=== PATIENT | male | born 1955 | race Two or more races ===

== ENCOUNTER → 2024-10-29 | Outpatient (CLI) | payer BC, SELFPAY ==
[2024-10-29 09:24] LABS: Basophils # (Auto) 0.1 Thou/mm3 (0.0-0.2); Basophils % (Auto) 1 % (0-2.5); Eosinophils # (Auto) 0.1 Thou/mm3 (0.0-0.5); Eosinophils % (Auto) 2 % (0-10); Hematocrit 46.7 % (41.0-53.0); Hemoglobin 15.6 g/dL (13.5-16.0); Immature Granulocytes % (Auto) 0 % (0-0); Immature Granulocytes Auto 0.01 Thou/mm3 (0.00-0.00); Lymphocytes # (Auto) 1.3 Thou/mm3 (1.0-4.8); Lymphocytes % (Auto) 32 % (10-50); Mean Corpuscular HGB Conc 33.4 g/dl (31.0-37.0); Mean Corpuscular Hemoglobin 32.6 pg (25.0-35.0); Mean Corpuscular Volume 98 fL (80-100); Monocytes # (Auto) 0.4 Thou/mm3 (0.0-0.8); Monocytes % (Auto) 11 % (0-12); Neutrophils # (Auto) 2.1 Thou/mm3 (1.8-7.7); Neutrophils % (Auto) 54 % (37-80); Nucleated Red Blood Cell % 0 /100 WBC (0); Platelet Count 163 Thou/mm3 (140-440); RDW Standard Deviation 47.2 fL (35.1-43.9); Red Blood Count 4.78 Miln/mm3 (4.50-5.90)
[2024-10-29 09:40] LABS: Alanine Aminotransferase 17 U/L (10-49); Albumin, Serum 4.3 gm/dL (3.4-4.8); Alkaline Phosphatase 84 U/L (46-116); Anion Gap 3 (7-16); Aspartate Amino Transferase 21 U/L (0-34); BUN/Creatinine Ratio 18 Ratio (12-20); Bilirubin,Direct 0.4 mg/dL (0.0-0.3); Bilirubin,Total 1.2 mg/dL (0.3-1.2); Blood Urea Nitrogen 22 mg/dL (9-23); Calcium 9.7 mg/dL (8.3-10.6); Cardiac Risk Estimate 2.3 RATIO (4.0-6.7); Chloride 105 mMol/L (98-107); Cholesterol 146 mg/dL (132-200); Creatinine (Component) 1.2 mg/dL (0.6-1.3); Free T4 (Free Thyroxine) 1.34 ng/dL (0.89-1.76); Glucose 118 mg/dL (74-106); HDL Cholesterol 63 mg/dL (40-60); LDL Cholesterol,Calculated 68 mg/dL (0-130); Osmolality,Calculated 281 (275-295); Potassium 5.6 mMol/L (3.4-5.1); Sodium 139 mMol/L (136-145); Thyroid Stimulating Hormone 1.13 uIU/mL (0.55-4.78); Total Protein 6.8 gm/dL (5.7-8.2); Triglycerides 75 mg/dL (30-150); eGFR > 60 See Note
== END | disposition home or self-care (01) ==
LOC: COPL 08:27
PROVIDERS: PCP Family Medicine; Referring Provider Family Medicine; Visit Provider Family Medicine
DX: E03.9 Hypothyroidism, unspecified (principal); E78.5 Hyperlipidemia, unspecified; I10 Essential (primary) hypertension
CPT/HCPCS: 36415; 80048; 80061; 80076; 84439; 84443; 85025

== ENCOUNTER → 2024-11-16 | Outpatient (CLI) | payer BC, SELFPAY ==
[2024-11-22 06:54] LABS: Fecal Globin Result NOT DETECTED (NOT DETECTED)
== END | disposition home or self-care (01) ==
LOC: SLDO 09:57
PROVIDERS: PCP Family Medicine; Referring Provider Family Medicine; Visit Provider Family Medicine
DX: Z12.11 Encounter for screening for malignant neoplasm of colon (principal); Z12.12 Encounter for screening for malignant neoplasm of rectum
CPT/HCPCS: 82274; G0328

== ENCOUNTER → 2025-01-31 | Outpatient (CLI) | payer BC, SELFPAY ==
[2025-01-31 09:07] LABS: Anion Gap 8 (7-16); BUN/Creatinine Ratio 25 Ratio (12-20); Blood Urea Nitrogen 25 mg/dL (9-23); Calcium 9.6 mg/dL (8.3-10.6); Carbon Dioxide 26.1 mMol/L (20.0-31.0); Chloride 108 mMol/L (98-107); Glucose 97 mg/dL (74-106); Osmolality,Calculated 287 (275-295); Potassium 4.5 mMol/L (3.4-5.1); Sodium 142 mMol/L (136-145); eGFR > 60 See Note
== END | disposition home or self-care (01) ==
LOC: COPL 07:52
PROVIDERS: PCP Family Medicine; Referring Provider Family Medicine; Visit Provider Family Medicine
DX: I10 Essential (primary) hypertension (principal)
CPT/HCPCS: 36415; 80048

== ENCOUNTER 2025-10-06 21:41 | Emergency (ER) | payer BC, SELFPAY ==
--- NOTE | 2025-10-06 21:53 | XR_ITS ---
Examination: CT chest, without intravenous contrast. CT abdomen, without intravenous contrast. CT pelvis, without intravenous contrast. 2-D sagittal and coronal reconstructions. 3-D reconstructions. Date and time of exam: October 06, 2025, 1132 hours INDICATIONS: Onset chest abdominal pain beginning 2 hours ago CTDI vol (mgy) 11.4 DLP (MGycm) 907 Technique: Multiple CT images, 3.0 mm slice thickness, obtained chest, abdomen, pelvis, with the high-resolution 64 slice scanner.. Sagittal and coronal 2-D reconstructions are obtained. 3-D reconstructions Low dose protocols were performed. One or more of the following dose reduction techniques were used; automated exposure control, adjustment of the mA and/or KV according to patient size, use of iterative reconstruction technique. Findings: Thoracic aortic calcification no aneurysmal dilatation Pulmonary artery segments are not enlarged No pneumonia or pulmonary edema or pleural disease No liver or splenic lesion Contracted gallbladder No pancreatic or adrenal mass Bilateral renal calculi, 4 mm on the left 4 mm on the right Benign right renal cysts No hydronephrosis or ureteral calculi Normal appendix Colonic diverticulosis, no diverticulitis No bladder mass or bladder calculi Moderate prostatomegaly Small fat-containing right inguinal hernia IMPRESSION: No mediastinal lymphadenopathy No pneumonia or pulmonary edema Bilateral nonobstructing renal calculi, no hydronephrosis or ureteral calculi Normal appendix No bladder mass or bladder calculi Moderate prostatomegaly
--- NOTE | 2025-10-06 21:53 | XR_ITS ---
Examination: CT brain head without contrast. 2-D sagittal coronal reconstructions Date and time of exam: October 06, 2025, 11:30 p.m., comparison October 01, 2023 INDICATIONS: Syncopal episode with loss of consciousness 2 hours ago with nausea vomiting CTDI: vol (mGy): 52.1 DLP: (mGycm): 982 Technique: Multiple CT axial sections of the brain have been obtained, 5 mm slice thickness. Contrast has not been administered. 2-D sagittal, coronal reconstructions have been obtained Low dose protocols were performed. One or more of the following dose reduction techniques were used; automated exposure control, adjustment of the mA and/or KV according to patient size, use of iterative reconstruction technique. Findings: No significant ventricular enlargement. 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 No mass effect or midline shift Basal cisterns are not remarkable. Fourth ventricle is midline. Cranial vault intact. Impression: Negative for acute hemorrhage, mass effect or midline shift Advise clinical correlation and follow-up accordingly
--- NOTE | 2025-10-06 21:53 | XR_ITS ---
EXAMINATION: AP chest single view TECHNIQUE: AP portable upright chest single view Date and time: October 06, 2025, 10:29 p.m. INDICATIONS: Shortness of breath today. FINDINGS: Moderate elevation left hemidiaphragm Mild vascular congestion. Normal heart size. No pneumonia or pulmonary edema IMPRESSION: Mild vascular congestion No pneumonia or pulmonary edema
--- NOTE | 2025-10-06 21:53 | EKG_ITS ---
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
[2025-10-06 22:14] VITALS: PULSE 63; RESP 18; O2SAT 98; BMI 28.3
[2025-10-06] MEDS: SODIUM CHLORIDE 0.9% 1000 ML 1,000 ML 999 ML IV (22:14)
[2025-10-06] MEDS: ONDANSETRON INJ 2 MG/ML INJ 2 ML 4 MG IVP (22:15)
[2025-10-06 22:16] VITALS: BP 123/66; PULSE 65; RESP 14; O2SAT 99
--- NOTE | 2025-10-06 22:22 | PD.EDSYNC ---
ED Syncope RME/HPI General Chief Complaint: Nausea/Vomiting/Diarrhea Stated Complaint: NAUSEA, VOMITTING Time Seen by Provider: 10/06/25 22:19 Arrival date/time: 10/06/25 21:41 RME / HPI RME / HPI narrative: See [facility] for Dr. Thrasher's HPI Documentation. Related Data Home Medications ?Medication ?Instructions ?Recorded ?Confirmed clopidogrel 75 mg tablet 75 mg PO QDAY 10/03/23 10/03/23 gabapentin 300 mg capsule 300 mg PO TID 10/03/23 10/03/23 levothyroxine 100 mcg tablet 100 mcg PO QDAY 10/03/23 10/03/23 tamsulosin 0.4 mg capsule 0.4 mg PO QDAY 10/03/23 10/03/23 Previous Rx's ?Medication ?Instructions ?Recorded atorvastatin 80 mg tablet 80 mg PO QPM #30 tabs 10/03/23 Allergies Allergy/AdvReac Type Severity Reaction Status Date / Time No Known Allergies Allergy Verified 10/01/23 09:29 Review of Systems Review of Systems Systems Reviewed: All systems reviewed, normal except as documented Past Medical History Past Medical History CARDIAC: Positive Hypercholesterolemia and Hypertension GENITOURINARY: Positive Benign Prostatic Hyperplasia MUSCULOSKELETAL: Positive Arthritis ENDOCRINE: Positive Hypothyroidism Family History FAMILY HISTORY: Positive Family Cardiac Disorders ED Exam Narrative Physical exam: See [facility] for Dr. Thrasher's Physical Exam Documentation. Course Quality Measures none Orders Category Date Time Status EKG (ED ONLY) *Do not use* NOW Care 10/06/25 21:53 Completed Saline [Insert IV] NOW Care 10/06/25 21:52 Completed Straight [In and Out Catheter] X1 Care 10/06/25 21:[address] chest abdomen pelvis wo Stat Exams 10/06/25 21:[address] head/brain wo con Stat Exams 10/06/25 21:53 Completed EKG (ED Only) Stat Exams 10/06/25 21:53 Draft XR chest 1V portable Stat Exams 10/06/25 21:53 Completed Alcohol, Blood Medical Stat Lab 10/06/25 22:18 Completed Amylase Stat Lab 10/06/25 22:18 Completed BNP [B-Type Natriuretic Peptide] Stat Lab 10/06/25 22:18 Completed Bilirubin,Direct Stat Lab 10/06/25 22:18 Completed Blood Culture (Lab) Stat Lab 10/06/25 22:20 Received CBC Stat Lab 10/06/25 22:18 Completed CMP [Comprehensive Metabolic Panel] Stat Lab 10/06/25 22:18 Completed COVID-19 Antigen (In-House) Stat Lab 10/07/25 01:20 Completed CRP [C-Reactive Protein] Stat Lab 10/06/25 22:18 Completed ESR [Sed Rate (ESR)] Stat Lab 10/06/25 22:18 Completed Hemoglobin A1C [Glycohemoglobin w (eAG)] Stat Lab 10/06/25 22:18 Completed Influenza A & B Rapid Panel Stat Lab 10/07/25 01:20 Completed Lactate (Lactic Acid) Stat Lab 10/06/25 22:18 Completed Lipase Stat Lab 10/06/25 22:18 Completed Magnesium Stat Lab 10/06/25 22:18 Completed Procalcitonin Stat Lab 10/06/25 22:18 Completed TSH [Thyroid Stimulating Hormone] Stat Lab 10/06/25 22:18 Completed Troponin I Stat Lab 10/06/25 22:18 Completed Troponin I Stat Lab 10/07/25 01:31 Completed UA, C/S IF [Urinalysis, C/S if Indicated] Stat Lab 10/06/25 22:26 Completed VBG [Venous Blood Gas] Stat Lab 10/06/25 22:18 Completed Ondansetron Inj [Zofran Inj] Med 10/06/25 21:52 Discontinued 4 mg IVP X1 ONE Sodium Chloride 0.9% 1000 ml [Ns] 1,000 ml Med 10/06/25 21:52 Discontinued IV 999 mls/hr Vital Signs Vital signs: Vital Signs Pulse Rate 65 10/06/25 22:16 Respiratory Rate 14 10/06/25 22:16 Blood Pressure 123/66 10/06/25 22:16 Pulse Oximetry (%) 99 10/06/25 22:16 Oxygen Delivery Method Room Air 10/06/25 22:16 Syncope MDM Narrative MDM Narrative:: This section includes all my notes and documentations, including HPI, PE, and ED course. 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 Lasted for several seconds. Patient doesn't remember. Currently, he feels completely normal. No headache or dizziness. No speech or vision impairment. No loss of power in the arms or legs. No chest pain or shortness of breath. No other complaints. ROS: All negative except as documented in HPI. Physical Exam: General: Alert and oriented. No acute distress. Eyes: Conjunctivae and lids clear. EOMI. PERRL. ENT: No nasal congestion. Neck: Supple. No carotid bruit. No JVD. Heart: RRR. Lungs: No respiratory distress. Good air movement. No rhonchi, wheezing, rales. Abdomen: Soft and nontender. Normal bowel sounds. No distension. No rebound or guarding. Legs: No clubbing, cyanosis, edema. Skin: Warm and dry. Neuro: Alert and oriented X 3. Cranial Nerves II-XII grossly intact. No peripheral motor deficits. Musculoskeletal: All major joints and bones are not tender with no limited ROM. I reviewed EMS notes. I reviewed all diagnostic test results: My interpretation of the EKG is: Sinus rhythm (57 bpm) with nonspecific ST-T changes. My interpretation of the chest x-ray is: No acute findings. My review of the Head/Brain CT report is: No acute findings. My review of the Abdomen/Pelvis CT report is: No acute findings. Blood tests and urine tests unremarkable, except serum alcohol 41.2. Covid/Influenza are negative. At this point, diagnoses include: Syncope for few seconds with no obvious etiology Treatment here included: IVF 1 L Zofran 4 mg IV Patient remained stable. Recommended more outpatient workup. Based on my best medical judgment, made decision no further evaluation or treatment indicated at this time. Patient and understands and agrees to the discharge instructions customized and printed, see below. Discharge instructions from Dr. Thrasher: 1. After extensive evaluation, exact cause of why you passed out for few seconds was not determined. But there is no immediately life-threatening condition. Such as stroke or brain tumor or heart attack. 2. Eat regular nutritious meals. For good hydration, increase oral fluid and maintain clear urine. If dark or yellow, increase oral fluid. 3. See a private doctor on 10/10/25 for more investigation. Ask to review all test results and official radiology reports, to make sure you receive all necessary follow-ups and monitoring. To make sure there is no serious underlying heart condition, ask to help you get more tests for your heart that cannot be done here in the ER. Such as Holter Monitor (cardiac monitoring at home from a day to even a month), heart stress test (on treadmill or with medication), echocardiogram (imaging of your heart structures), heart catherization (checking for blockages in your heart arteries), and a referral to see a Archaeology Professor. And ask for help with MRI imaging of the brain and referral to see neurologist. 4. Seek immediate medical care with another episode or with any concerns. Jeff Thrasher MD Patient data External records reviewed:: [facility] previous records (Reviewed prior ED records from 10/01/23. Patient was seen for Elevated blood pressure reading without diagnosis of hypertension.) and EMS form Clinical information provided by:: patient and EMS Social determinants that could affect healthcare access:: none Patient has the following chronic illnesses:: Hypercholesterolemia, Hypertension, Benign Prostatic Hyperplasia, Arthritis, Hypothyroidism How is presenting disease/condition affected by chronic disease/condition?: exacerbated by Evaluation data The following diagnostics were reviewed and interpreted by me:: lab results, radiology exam(s) and EKG tracing(s) (My interpretation of the EKG is: Sinus rhythm (57 bpm) with nonspecific ST-T changes. Jeff Thrasher MD) Lab and/or radiology exams considered but not ordered:: None Interpretation Summary: I reviewed all diagnostic test results: My interpretation of the EKG is: Sinus rhythm (57 bpm) with nonspecific ST-T changes. My interpretation of the chest x-ray is: No acute findings. My review of the Head/Brain CT report is: No acute findings. My review of the Abdomen/Pelvis CT report is: No acute findings. Blood tests and urine tests unremarkable, except serum alcohol 41.2. Covid/Influenza are negative. Medications / Prescriptions Medications or Prescriptions considered but not ordered:: None Medication administrations:: Medication Administration History Discontinued Medications Sodium Chloride (Ns) 1,000 mls @ 999 mls/hr IV .Q1H1M ONE Stop: 10/06/25 22:52 Last Infusion: 10/06/25 23:15 Dose: Infused Documented By: Admin: 11/27/25 22:14 Dose: 999 mls/hr Documented By: MCKENZIE Ondansetron HCl (Ondansetron Inj 2 Mg/Ml Inj 2 Ml) 4 mg IVP X1 ONE; Protocol Stop: 10/06/25 21:53 Last Admin: 10/06/25 22:15 Dose: 4 mg Documented By: MCKENZIE Treatment here included: IVF 1 L Zofran 4 mg IV Consultations Consultation(s) initiated? (list below): No Diagnosis Syncope Differential Diagnosis: syncope due to orthostatic hypotension, vasovagal syncope, complete atrioventricular block, subarachnoid hemorrhage, dehydration and other (CVA, brain tumor, psychogenic) Most likely diagnosis given after review of the tests above:: Syncope for few seconds with no obvious etiology Admission Indicated Admission indicated?: not indicated Explain why admission is indicated or not indicated:: With significant improvement and no condition needing emergent intervention, there was no indication for admission. Admission Request Was there a request for admission?: No Disposition Plan Disposition Plan: Discharge Discharge Attestation Discharge Attestation: The patient and all family members were given an opportunity to ask questions and understood the discharge instructions. Discharge instructions specifically effects, indications for sooner follow up or return to the emergency department, and the expected course of current diagnosis. Patient condition: Stable Discharge Plan Plan Patient Disposition: HOME (Self Care) Prescriptions/Referrals Prescriptions/Med Rec: No Action clopidogrel 75 mg tablet 75 mg PO QDAY Patient Comments: TAKE 1 TABLET BY MOUTH DAILY levothyroxine 100 mcg tablet 100 mcg PO QDAY Patient Comments: TAKE 1 TABLET BY MOUTH EVERY DAY tamsulosin 0.4 mg capsule 0.4 mg PO QDAY Patient Comments: TAKE 2 CAPSULES BY MOUTH DAILY gabapentin 300 mg capsule 300 mg PO TID Patient Comments: TAKE 1 CAPSULE BY MOUTH THREE TIMES DAILY atorvastatin 80 mg tablet 80 mg PO QPM Qty: 30 0RF Referrals: No Primary/Family,Physician [Primary Care Provider] - In 1 week Problem List Clinical Impression: Syncope Patient/Caregiver Discharge Instructions Discharge Activity: activity as tolerated Education Materials: ED Fainting, Uncertain Cause Additional Instructions: Discharge instructions from Dr. Thrasher: 1. After extensive evaluation, exact cause of why you passed out for few seconds was not determined. But there is no immediately life-threatening condition. Such as stroke or brain tumor or heart attack. 2. Eat regular nutritious meals. For good hydration, increase oral fluid and maintain clear urine. If dark or yellow, increase oral fluid. 3. See a private doctor on 10/10/25 for more investigation. Ask to review all test results and official radiology reports, to make sure you receive all necessary follow-ups and monitoring. To make sure there is no serious underlying heart condition, ask to help you get more tests for your heart that cannot be done here in the ER. Such as Holter Monitor (cardiac monitoring at home from a day to even a month), heart stress test (on treadmill or with medication), echocardiogram (imaging of your heart structures), heart catherization (checking for blockages in your heart arteries), and a referral to see a Archaeology Professor. And ask for help with MRI imaging of the brain and referral to see neurologist. 4. Seek immediate medical care with another episode or with any concerns. Instrucciones de moe del Dr. Thrasher: 1. Tras jamal evaluaci?n exhaustiva, no se determin? la causa exacta del desmayo de unos segundos. Sin embargo, no presenta ninguna afecci?n que ponga en peligro blackwell jaqueline de forma inmediata. Krupa un derrame cerebral, un tumor cerebral o un ataque card?aco. 2. Consuma comidas nutritivas regularmente. Para jamal buena hidrataci?n, aumente la ingesta de l?quidos y mantenga la orina vel. Si la orina es oscura o amarilla, aumente la ingesta de l?quidos. 3. Consulte con un m?dico particular el 10/10/25 para jamal mayor investigaci?n. Solicite revisar todos los resultados de las pruebas y los informes radiol?gicos oficiales para asegurarse de recibir todo el seguimiento y la monitorizaci?n necesarios. Para descartar cualquier afecci?n card?marisol subyacente grave, solicite que le realicen m?s pruebas card?acas que no se pueden realizar aqu? en la sarthak de emergencias. Krupa un monitor Holter (monitorizaci?n card?marisol en casa prem un d?a o incluso un mes), jamal prueba de esfuerzo card?aco (en cinta de correr o con medicaci?n), un ecocardiograma (imagen de las estructuras del coraz?n), un cateterismo card?aco (para detectar obstrucciones en las arterias coronarias) y jamal derivaci?n a un cardi?logo. Adem?s, solicite jamal resonancia magn?yamini cerebral y jamal derivaci?n a un neur?logo. 4. Busque atenci?n m?dica inmediata si presenta otro episodio o si tiene alguna inquietud. Print Language: Tamazight Stand Alone Forms: Diana Award Info., Patient Portal Info Letter
[2025-10-06 22:26] LABS: Lactate (Lactic Acid) 1.6 mMol/L (0.4-2.0)
[2025-10-06 22:27] LABS: Base Excess, Venous 0 (-3-3); O2 Saturation, Venous 54 % (96-97); PCO2, Venous 39 mmHg (36-56); PO2, Venous 37 mmHg (15-58); pH, Venous 7.41 (7.33-7.66)
--- NOTE | 2025-10-06 22:32 | PC.NURSE ---
Did not perform in and out order. Pt was able to provide a urine sample using a urinal to collect a UA sample.
[2025-10-06 22:38] LABS: Sed Rate (ESR) 9 mm/hr (0-20)
[2025-10-06 22:40] LABS: Basophils # (Auto) 0.1 Thou/mm3 (0.0-0.2); Basophils % (Auto) 1 % (0-2.5); Eosinophils # (Auto) 0.1 Thou/mm3 (0.0-0.5); Eosinophils % (Auto) 2 % (0-10); Hematocrit 46.0 % (41.0-53.0); Hemoglobin 15.4 g/dL (13.5-16.0); Immature Granulocytes Auto 0.01 Thou/mm3 (0.00-0.00); Lymphocytes # (Auto) 1.7 Thou/mm3 (1.0-4.8); Lymphocytes % (Auto) 28 % (10-50); Mean Corpuscular HGB Conc 33.5 g/dl (31.0-37.0); Mean Corpuscular Hemoglobin 32.6 pg (25.0-35.0); Mean Corpuscular Volume 98 fL (80-100); Monocytes # (Auto) 0.6 Thou/mm3 (0.0-0.8); Monocytes % (Auto) 10 % (0-12); Neutrophils # (Auto) 3.5 Thou/mm3 (1.8-7.7); Neutrophils % (Auto) 58 % (37-80); Nucleated Red Blood Cell # 0.00 Thou/mm3 (0.00-0.00); Nucleated Red Blood Cell % 0 /100 WBC (0); Platelet Count 159 Thou/mm3 (140-440); RDW Standard Deviation 45.3 fL (35.1-43.9); Red Blood Count 4.72 Miln/mm3 (4.50-5.90); White Blood Count 6.0 Thou/mm3 (3.8-10.6)
[2025-10-06 22:49] LABS: B-Type Natriuretic Peptide 51 pg/mL (0-100)
[2025-10-06 22:52] LABS: Collection Type, Urine Clean Catch; Squamous Epithelial Cell,Urine 0 /hpf (0-5)
[2025-10-06 23:09] LABS: Bacteria,Urine Rare; Bilirubin,Urine Negative (Negative); Blood,Urine Trace (Negative); Clarity,Urine Clear (Clear/Hazy); Color,Urine Lt-Yellow (Lt Yel-Yel); Culture Indicated,Urine Not Indicated; Glucose, Urine Negative (Negative); Hyaline Casts,Urine < 1 /hpf (0-1); Ketones,Urine Negative (Negative); Leukocyte Esterase,Urine Negative (Negative); Nitrite,Urine Negative (Negative); PH,Urine 6.0 (5.0-7.0); Protein,Urine 1+ (Neg - Trace); RBC,Urine 10 /hpf (0-3); Specific Gravity,Urine 1.020 (1.001-1.035); Urobilinogen,Urine Negative mg/dL (0.0-1.0); WBC,Urine 2 /hpf (0-5)
[2025-10-06 23:19] LABS: Alanine Aminotransferase 15 U/L (10-49); Albumin, Serum 4.2 gm/dL (3.4-4.8); Albumin/Globulin Ratio 1.9 (1.2-2.2); Alcohol, Blood Medical 41.2 mg/dL (0-10.0); Alkaline Phosphatase 97 U/L (46-116); Amylase 178 U/L (30-118); Anion Gap 10 (7-16); Aspartate Amino Transferase 32 U/L (0-34); BUN/Creatinine Ratio 14 Ratio (12-20); Bilirubin,Direct 0.2 mg/dL (0.0-0.3); Bilirubin,Total 0.6 mg/dL (0.3-1.2); Blood Urea Nitrogen 18 mg/dL (9-23); C-Reactive Protein < 0.5 mg/dL (0.0-0.9); Calcium 9.1 mg/dL (8.3-10.6); Calcium (Corrected) 9.1 mg/dL (8.5-10.1); Carbon Dioxide 25.7 mMol/L (20.0-31.0); Chloride 107 mMol/L (98-107); Creatinine (Component) 1.3 mg/dL (0.6-1.3); Estimated Creatinine Clearance 49.9 mL/min (>60); Globulin 2.2 gm/dL (2.3-3.5); Glucose 97 mg/dL (74-106); Lipase 32 U/L (12-53); Magnesium 2.1 mg/dL (1.6-2.6); Osmolality,Calculated 286 (275-295); Potassium 3.9 mMol/L (3.4-5.1); Procalcitonin 0.10 ng/ml (0.0-0.49); Sodium 143 mMol/L (136-145); Thyroid Stimulating Hormone 1.28 uIU/mL (0.55-4.78); Total Protein 6.4 gm/dL (5.7-8.2); Troponin I < 0.020 ng/mL (0.0-0.045); eGFR 59 See Note
[2025-10-07 00:09] LABS: Glucose Estimated Average 105 mg/dL (80-131); Hemoglobin A1C 5.3 % Hgb (4.8-6.0)
[2025-10-07 01:57] LABS: COVID-19 Antigen (In-House) Negative (Negative)
[2025-10-07 01:59] LABS: Influenza A Ag Negative; Influenza B Ag Negative
[2025-10-07 02:11] LABS: Troponin I < 0.020 ng/mL (0.0-0.045)
[2025-10-07 02:44] VITALS: BP 123/66; PULSE 58; RESP 14; TEMP 37.1; O2SAT 100
== END 2025-10-07 03:44 | disposition home or self-care (01) ==
PROVIDERS: Emergency Provider Emergency Medicine
DX: R55 Syncope and collapse (principal); R06.02 Shortness of breath; R11.2 Nausea with vomiting, unspecified; R10.9 Unspecified abdominal pain; R07.9 Chest pain, unspecified; R00.1 Bradycardia, unspecified
CPT/HCPCS: 36415; 70450; 71045; 71250; 74176; 80053; 80320; 81001; 82150; 82248; 82803; 83036; 83605; 83690; 83735; 83880; 84145; 84443; 84484; 85025; 85652; 86140; 87040; 87502; 87811; 93005; 96361; 96374; 99284; J2405; J7030; G0480